=== PATIENT | female | born 1955 | race Caucasian/White ===

== ENCOUNTER 2020-12-10 03:47 | Emergency (ER) | payer MEDICARE ==
[~2020-12-10] VITALS: Ht 330.2 cm; Wt 90.0 kg
--- NOTE | 2020-12-10 04:55 | ED.ADGEN ---
Past Medical History Additional Past Medical Histor: sepsis, insomnia, ADI, PE, Cardiomyopathy, UTI, Covid, PM with Defibrilator Past Medical History Colitis Past Surgical History: Cholecystectomy, Hysterectomy Smoking Status: Never Smoker Alcohol Use: None Drug Use: None General Adult EDM: Chief Complaint: NAUSEA/VOMITING/DIARRHEA HPI: HPI: Patient is a 65 year old female coming from a nursing facility for multiple complaints. Patient that the when she woke up. Her vertigo that got better with rest and went away after about 1 hour. Has had previous history of proble ms like this in the past. Nursing staff report states that her blood pressure was 80s over 40s, but on EMS arrival their blood pressure was 120/60. Patient states she "just do not feel well. Patient has chronic abdominal pain and diarrhea. States she was recently hospitalized in [place] after a fall and she thought she might have rib fractures, but was admitted and per her account was "the sickest patient hospital and had for her first 2 days". Patient is a poor historian but states that she had a "intestinal blockage normal pulmonary embolism, kidneys stopped working, urinary tract infection, and sepsis." Patient history of chronic abdominal pain and diarrhea. Has had both doses of her Moderna Covid vaccine Review of Systems: Review of Systems: All other systems within normal limits except for as noted in the HPI Current Medications: Current Medications Medications (Trade) Dose Ordered Sig/Nuno Start Time Stop Time Status Last Admin Dose Admin Acetaminophen/ Hydrocodone Bitart (Lortab 5/325) 1 tab 1X ONCE 12/10/20 09:45 12/10/20 09:46 DC Ciprofloxacin (Cipro) 500 mg 1X ONCE 12/10/20 09:45 12/10/20 09:46 DC Info (CONTRAST GIVEN -- Rx MONITORING) 1 each PRN DAILY PRN 12/10/20 08:00 12/12/20 07:59 Iohexol (Omnipaque 300 Mg/ml) 75 ml 1X ONCE 12/10/20 08:00 12/10/20 08:01 DC 12/10/20 08:25 60 ML Metronidazole (Flagyl) 500 mg 1X ONCE 12/10/20 09:45 12/10/20 09:46 DC Ondansetron HCl (Zofran) 4 mg 1X ONCE 12/10/20 05:00 12/10/20 05:01 DC 12/10/20 04:56 4 MG Allergies: Allergies: Allergies Coded Allergies Type Severity Reaction Last Updated Verified acetaminophen Allergy Severe hallucination 12/10/20 Yes oxycodone Allergy Severe hallucination 12/10/20 Yes liothyronine Allergy Intermediate Rash 12/10/20 Yes Physical Exam: PE: Constitutional: Well developed, well nourished, no acute distress, non-toxic appearance. [] HENT: Normocephalic, atraumatic, bilateral external ears normal, nose normal. [] Eyes: PERRLA, conjunctiva normal, no discharge. [] Neck: No rigidity, supple, no stridor. [] Cardiovascular: Regular rate and rhythm, brisk cap refill [] Lungs & Thorax: Non labored symmetric respirations, no tachypnea or respiratory distress [] Abdomen: Soft, nondistended. Skin: Warm, dry, no erythema, no rash. [] Back: Unremarkable Extremities: No deformities, range of motion grossly intact, no lower extremity edema [] Neurologic: Alert and oriented X 3, no focal deficits noted. [] Psychologic: Affect normal, judgement normal, mood normal. [] Constitutional: Well developed, well nourished, no acute distress, non-toxic appearance HENT: Normocephalic, atraumatic Eyes: Conjunctiva normal, no discharge Neck: Normal range of motion, no tenderness, supple Lungs & Thorax: No respiratory distress, equal chest rise and fall Abdomen: Soft, lower quadrant tenderness, mild distention Skin: Warm, dry, no erythema, no rash Back: No tenderness, no CVA tenderness Extremities: No tenderness, ROM intact, BLE 1+ edema Neurologic: Alert and oriented X 3, no focal deficits noted Psychologic: Affect normal, judgment normal Current Patient Data: Labs: Laboratory Tests Test 12/10/20 04:45 12/10/20 07:27 Urine Collection Type Unknown Urine Color Yellow Urine Clarity Clear Urine pH 7.0 (<5.0-8.0) Urine Specific [place] <=1.005 (1.000-1.030) Urine Protein Negative mg/dL (NEG-TRACE) Urine Glucose (UA) Negative mg/dL (NEG) Urine Ketones (Stick) Negative mg/dL (NEG) Urine Blood Small (NEG) Urine Nitrite Negative (NEG) Urine Bilirubin Negative (NEG) Urine Urobilinogen Dipstick 1.0 mg/dL (0.2 mg/dL) Urine Leukocyte Esterase Negative (NEG) Urine RBC 0 /HPF (0-2) Urine WBC Occ /HPF (0-4) Urine Squamous Epithelial Cells Mod /LPF Urine Transitional Epithelial Cells Few /LPF Urine Renal Epithelial Cells Occ /LPF Urine Bacteria 0 /HPF (0-FEW) White Blood Count 16.0 x10^3/uL (4.0-11.0) H Red Blood Count 3.01 x10^6/uL (3.50-5.40) L Hemoglobin 9.1 g/dL (12.0-15.5) L Hematocrit 27.5 % (36.0-47.0) L Mean Corpuscular Volume 91 fL (79-100) Mean Corpuscular Hemoglobin 30 pg (25-35) Mean Corpuscular Hemoglobin Concent 33 g/dL (31-37) Red Cell Distribution Width 16.8 % (11.5-14.5) H Platelet Count 750 x10^3/uL (140-400) H Neutrophils (%) (Auto) 74 % (31-73) H Lymphocytes (%) (Auto) 15 % (24-48) L Monocytes (%) (Auto) 10 % (0-9) H Eosinophils (%) (Auto) 1 % (0-3) Basophils (%) (Auto) 0 % (0-3) Neutrophils # (Auto) 11.8 x10^3/uL (1.8-7.7) H Lymphocytes # (Auto) 2.4 x10^3/uL (1.0-4.8) Monocytes # (Auto) 1.6 x10^3/uL (0.0-1.1) H Eosinophils # (Auto) 0.1 x10^3/uL (0.0-0.7) Basophils # (Auto) 0.1 x10^3/uL (0.0-0.2) Platelet Estimate Pending Sodium Level 140 mmol/L (136-145) Potassium Level 3.3 mmol/L (3.5-5.1) L Chloride Level 106 mmol/L (98-107) Carbon Dioxide Level 26 mmol/L (21-32) Anion Gap 8 (6-14) Blood Urea Nitrogen 11 mg/dL (7-20) Creatinine 1.1 mg/dL (0.6-1.0) H Estimated GFR (Cockcroft-Gault) 49.8 BUN/Creatinine Ratio 10 (6-20) Glucose Level 92 mg/dL (70-99) Lactic Acid Level 0.7 mmol/L (0.4-2.0) Calcium Level 8.4 mg/dL (8.5-10.1) L Phosphorus Level 3.8 mg/dL (2.6-4.7) Magnesium Level 1.7 mg/dL (1.8-2.4) L Total Bilirubin 0.3 mg/dL (0.2-1.0) Aspartate Amino Transferase (AST) 88 U/L (15-37) H Alanine Aminotransferase (ALT) 89 U/L (14-59) H Alkaline Phosphatase 165 U/L (46-116) H Troponin I Quantitative < 0.017 ng/mL (0.000-0.055) EZ-Npu-R-Type Natriuretic Peptide 1297 pg/mL (0-124) H Total Protein 5.3 g/dL (6.4-8.2) L Albumin 1.4 g/dL (3.4-5.0) L Albumin/Globulin Ratio 0.4 (1.0-1.7) L Laboratory Tests 12/10/20 07:27 Laboratory Tests 12/10/20 07:27 Vital Signs: Vital Signs Date Time Temp Pulse Resp B/P (MAP) Pulse Ox O2 Delivery O2 Flow Rate FiO2 12/10/20 08:22 92 18 157/65 (95) 93 3.0 12/10/20 04:18 Nasal Cannula 12/10/20 04:06 99.1 99.1 EKG: EKG: Paced rhythm, heart rate 95 bpm, left axis deviation, wide-complex, no ST elevation depression [] Heart Score: C/O Chest Pain: N/A Radiology/Procedures: Radiology/Procedures: PROCEDURE: CT ABD PELV W/ IV CONTRST ONLY EXAM: CT Abdomen and Pelvis with IV contrast CLINICAL HISTORY: Reason: abd pain, generalized COMPARISON: none TECHNIQUE: Helical CT of the abdomen and pelvis was performed following the administration of intravenous contrast. Axial, coronal and sagittal reformatted images were generated. PQRS compliance statement - One or more of the following individualized dose reduction techniques were utilized for this study: 1. Automated exposure control 2. Adjustment of the mA and/or kV according to patient size 3. Use of iterative reconstruction technique FINDINGS: Lower Chest: Small bilateral pleural effusions. Dependent opacities in the lower lobes likely scarring/atelectasis. Fluid distention of the distal esophagus. Abdomen and Pelvis: Subcentimeter hypodense right hepatic lobe lesions are too small to accurately characterize. Liver is enlarged. There has been a cholecystectomy. No biliary ductal dilatation. Pancreas and spleen are unremarkable. Adrenal glands are normal. Symmetric nephrograms. No focal renal lesion. No hydronephrosis. No hydroureter. Bladder is unremarkable. Appendix is normal. Moderate colonic stool content is seen. Infiltration about the left colon from the splenic flexure to the sigmoid colon with associated wall thickening. Infiltration about the left colon and transverse colon is also seen although to a lesser extent. Colonic diverticula are seen in the sigmoid colon. No CT evidence for acute diverticulitis. Some regions of the colon appear relatively featureless. There has been a hysterectomy. Aorta is normal in caliber with atherosclerotic calcifications. Trace perisplenic ascites. Otherwise no significant abdominal or pelvic ascites. No abdominal or pelvic lymphadenopathy. Bones: No aggressive osseous lesion is seen. Degenerative changes of the spine are seen. IMPRESSION 1. Infiltration about the colon particularly the left colon, possibly infectious or inflammatory colitis. Ischemic colitis cannot be entirely excluded and can be correlated with patient's lab values and symptoms. As portions of th e colon appear somewhat featureless, inflammatory colitis is a primary consideration. 2. Hepatomegaly. Subcentimeter hypodense liver lesions too small to accurately characterize. 3. Small bilateral pleural effusions effusions. Associated dependent opacities likely atelectasis. Electronically signed by: James Morocho MD (12/10/2020 8:34 AM) [id number] Course & Med Decision Making: Course & Med Decision Making Pertinent Labs and Imaging studies reviewed. (See chart for details) 0600- Sign out received from Dr. Sotelo for patient with dizziness and abd ominal pain. Hx of chronic diarrhea. hx of admission in [place] for colitis. Patient reports she has had a GI scope with "inconclusive biopsy results" s/p colonoscopy. Labs and CT imaging pending. Nausea previously addressed. Patient seen and evaluated by myself. Labs stable. CT abd/pelvis with signs of colitis- inflammatory vs ischemic vs infectious. Doubt ischemia given normal lactic acid. WBC elevated. Will treat empirically with Cipro/Flagyl. Patient does reports stool studies done in [place] on . Reports C.diff studies were negative. Patient stable for discharge with outpatient follow-up with PCP/GI. Discussed findings and plan with patient and spouse, who acknowledge understanding and agreement. Of note patient requested hydrocodone. Patient noted to have received Stella 5/325mg x 30 tabs refilled on 12/06/20 per [facility]. Patient advised cannot prescribe new Rx for same given timing of recent pain medication prescription. Levsin SL prescribed instead. Dragon Disclaimer: Dragon Disclaimer: This electronic medical record was generated, in whole or in part, using a voice recognition dictation system. Departure Departure Impression: Primary Impression: Colitis Additional Impression: Dizziness Disposition: HOME / SELF CARE / HOMELESS Condition: STABLE Referrals: NO PCP (PCP) TANNER NEGRETE MD Patient Instructions: Colitis, Dizziness, Sgyi-az-Xtop Scripts Hyoscyamine Sulfate (LEVSIN-SL) 0.125 Mg Tab.subl 0.125 MG SL Q6HRS PRN for PAIN, #14 TAB Prov: PRITI KAISER DO 12/10/20 Metronidazole (FLAGYL) 500 Mg Tablet 500 MG PO TID for 7 Days, #21 TAB Prov: PRITI KAISER DO 12/10/20 Ciprofloxacin Hcl (CIPRO) 500 Mg Tablet 1 TAB PO BID for 7 Days, #14 TAB Prov: PRITI KAISER DO 12/10/20 Ondansetron (ONDANSETRON ODT) 4 Mg Tab.rapdis 1 TAB PO PRN Q6-8HRS PRN for NAUSEA, #16 TAB Prov: PRITI KAISER DO 12/10/20 Problem Qualifiers RACIEL SOTELO MD Dec 10, 2020 04:55 PRITI KAISER DO Dec 10, 2020 09:28
[2020-12-10] MEDS ORDERED: ONDANSETRON PF 4 MG/2 ML VIAL. IVP ONE (05:00)
--- NOTE | 2020-12-10 05:04 | EKG ---
[facility] [address] [place] [address] Test Date: 2020-12-10 Test Time: 04:06:24 Pat Name: NANCY FONSECA Department: Room: Gender: F Conservation Assistant: : 1955 Requested By: RACIEL SOTELO Order Number: [id number] Reading MD: Measurements Intervals [place] Rate: 95 P: 51 IA: 128 QRS: 185 QRSD: 94 T: 99 QT: 408 QTc: 516 Interpretive Statements SINUS RHYTHM COMPLEX(ES) WITH ABERRANT INTRAVENTRICULAR CONDUCTION ABNORMAL RIGHT SUPERIOR AXIS DEVIATION QRS(T) CONTOUR ABNORMALITY CONSIDER LATERAL MYOCARDIAL DAMAGE PROLONGED QT ABNORMAL ECG RI6.02 No previous ECG available for comparison
[2020-12-10 05:12] LABS: BILIRUBIN,URINE NEGATIVE (NEG); CLARITY,URINE CLEAR; COLOR,URINE YELLOW; NITRITE,URINE NEGATIVE (NEG); PROTEIN,URINE NEGATIVE (NEG-TRACE)
[2020-12-10 05:24] LABS: BACTERIA,URINE 0 /HPF (0-FEW); RBC,URINE 0 /HPF (0-2); WBC,URINE OCC /HPF (0-4)
[2020-12-10 07:52] LABS: BASO # 0.1 x10^3/uL (0.0-0.2); BASO % 0 % (0-3); EOS # 0.1 x10^3/uL (0.0-0.7); EOS % 1 % (0-3); HEMATOCRIT 27.5 % (36.0-47.0); HEMOGLOBIN 9.1 g/dL (12.0-15.5); LYMPH # 2.4 x10^3/uL (1.0-4.8); LYMPH % 15 % (24-48); MEAN CORPUSCULAR HEMOGLOBIN 30 pg (25-35); MEAN CORPUSCULAR HGB CONC 33 g/dL (31-37); MEAN CORPUSCULAR VOLUME 91 fL (79-100); MONO # 1.6 x10^3/uL (0.0-1.1); MONO % 10 % (0-9); NEUT # 11.8 x10^3/uL (1.8-7.7); NEUT % 74 % (31-73); PLATELET COUNT 750 x10^3/uL (140-400); RED BLOOD COUNT 3.01 x10^6/uL (3.50-5.40); RED CELL DISTRIBUTION WIDTH 16.8 % (11.5-14.5)
[2020-12-10 07:54] LABS: CALCIUM 8.4 mg/dL (8.5-10.1); CREATININE 1.1 mg/dL (0.6-1.0); GFR 49.8; POTASSIUM 3.3 mmol/L (3.5-5.1)
[2020-12-10] MEDS ORDERED: CONTRAST GIVEN. MC PRN (08:00)
[2020-12-10] MEDS ORDERED: IOHEXOL 300 MG/ML 100ML VIAL. IV ONE (08:00)
[2020-12-10 08:07] LABS: ALBUMIN 1.4 g/dL (3.4-5.0); ALBUMIN/GLOBULIN RATIO 0.4 (1.0-1.7); MAGNESIUM 1.7 mg/dL (1.8-2.4); PHOSPHORUS 3.8 mg/dL (2.6-4.7); TOTAL BILIRUBIN 0.3 mg/dL (0.2-1.0); TOTAL PROTEIN 5.3 g/dL (6.4-8.2)
[2020-12-10 08:22] VITALS: BP 157/65
--- NOTE | 2020-12-10 08:36 | RAD ---
EXAM: CT Abdomen and Pelvis with IV contrast CLINICAL HISTORY: Reason: abd pain, generalized COMPARISON: none TECHNIQUE: Helical CT of the abdomen and pelvis was performed following the administration of intrave nous contrast. Axial, coronal and sagittal reformatted images were generated. PQRS compliance statement - One or more of the following individualized dose reduction techniques wer e utilized for this study: 1. Automated exposure control 2. Adjustment of the mA and/or kV according to patient size 3. Use of iterative reconstruction technique FINDINGS: Lower Chest: Small bilateral pleural effusions. Dependent opacities in the lower lobes likely scarring/atelectasis . Fluid distention of the distal esophagus. Abdomen and Pelvis: Subcentimeter hypodense right hepatic lobe lesions are too small to accurately characterize. Liver is enlarged. There has been a cholecystectomy. No biliary ductal dilatation. Pancreas and spleen are un remarkable. Adrenal glands are normal. Symmetric nephrograms. No focal renal lesion. No hydronephrosi s. No hydroureter. Bladder is unremarkable. Appendix is normal. Moderate colonic stool content is see n. Infiltration about the left colon from the splenic flexure to the sigmoid colon with associated wa ll thickening. Infiltration about the left colon and transverse colon is also seen although to a less er extent. Colonic diverticula are seen in the sigmoid colon. No CT evidence for acute diverticulitis . Some regions of the colon appear relatively featureless. There has been a hysterectomy. Aorta is no rmal in caliber with atherosclerotic calcifications. Trace perisplenic ascites. Otherwise no signific ant abdominal or pelvic ascites. No abdominal or pelvic lymphadenopathy. Bones: No aggressive osseous lesion is seen. Degenerative changes of the spine are seen. IMPRESSION 1. Infiltration about the colon particularly the left colon, possibly infectious or inflammatory col itis. Ischemic colitis cannot be entirely excluded and can be correlated with patient's lab values an d symptoms. As portions of the colon appear somewhat featureless, inflammatory colitis is a primary c onsideration. 2. Hepatomegaly. Subcentimeter hypodense liver lesions too small to accurately characterize. 3. Small bilateral pleural effusions effusions. Associated dependent opacities likely atelectasis. Electronically signed by: James Morocho MD (12/10/2020 8:34 AM) [id number]
[2020-12-10] MEDS ORDERED: HYDROcodone/APAP 5/325MG 1 TAB TABLET PO ONE (09:45)
[2020-12-10] MEDS ORDERED: metroNIDAZOLE 500 MG TABLET PO ONE (09:45)
[2020-12-10] MEDS ORDERED: CIPROFLOXACIN HCL 250 MG TABLET. PO ONE (09:45)
[2020-12-10] MEDS ORDERED: HYDR-2761 PO (09:56)
[2020-12-10] MEDS ORDERED: METR500T PO (09:56)
[2020-12-10] MEDS ORDERED: CIPR500T94 PO (09:56)
[2020-12-10] MEDS ORDERED: ONDA4TAB12 PO (09:56)
[2020-12-10] MEDS ORDERED: HYOS0.1265 SL (09:58)
[2020-12-10 12:10] LABS: % ATYL 2 % (0-0); % BANDS 23 % (0-9); % EOS 2 % (0-5); % LYMPHS 20 % (24-48); % MONOS 10 % (0-10); % SEGS 43 % (35-66); NUCLEATED RBC 1
[2020-12-10 12:12] LABS: PLT ESTIMATE INCREASED (ADEQUATE)
[2020-12-10 12:13] LABS: ANISOCYTOSIS SLIGHT; TOXIC GRANULATION PRESENT
== END 2020-12-10 11:33 | disposition home or self-care (01) ==
LOC: ER 03:47
DX: K52.9 Noninfective gastroenteritis and colitis, unspecified (principal); R42 Dizziness and giddiness; G89.29 Other chronic pain; Z90.49 Acquired absence of other specified parts of digestive tract; Z90.710 Acquired absence of both cervix and uterus
CPT/HCPCS: 36415; 74177; 80053; 81001; 83605; 83735; 83880; 84100; 84484; 85007; 85025; 87040; 93005; 96374; 99285; J2405; Q9967